=== PATIENT | male | born 1965 | race Caucasian/White ===

== ENCOUNTER 2023-03-27 07:39 | Emergency (ER) | payer OTHER, SELFPAY ==
[2023-03-27 07:40] VITALS: BP 105/37
[2023-03-27 08:12] LABS: % Basophils 1.6 % (0-2); % Eosinophils 8.1 % (0-6); % Immature Granulocytes 0.3 % (0-0.5); % Lymphocytes 26.8 % (20.5-51.1); % Monocytes 11.6 % (1.7-9.3); % Neutrophils 51.6 % (42.2-75.2); Absolute Basophils 0.1 10^3/uL (0-0.2); Absolute Eosinophils 0.6 10^3/uL (0-0.7); Absolute Lymphocytes 2.1 10^3/uL (1.2-3.4); Absolute Monocytes 0.9 10^3/uL (0.1-0.6); Absolute Neutrophils 4.1 10^3/uL (1.4-6.5); Hematocrit 37.9 % (39.0-52.0); Hemoglobin 12.8 g/dL (13.0-18.0); Mean Corp Hgb Conc. 33.8 g/dL (33.0-37.0); Mean Corpuscular Hgb 27.4 pg (27.0-31.0); Mean Platelet Volume 8.9 fL (7.4-10.4); Nucleated Red Blood Cells % 0 % (-); Platelet Count 249 10^3/uL (130-400); Red Blood Cell Count 4.68 10^6/uL (4.70-6.10); White Blood Cell Count 7.9 10^3/uL (4.8-10.8)
[2023-03-27 08:14] LABS: ALT (SGPT) 22 U/L (0-50); AST (SGOT) 25 U/L (17-59); Albumin 3.9 g/dl (3.5-5.0); Alkaline Phosphatase 100 U/L (38-126); Blood Urea Nitrogen 53 mg/dl (9-20); Calcium 9.4 mg/dl (8.4-10.2); Carbon Dioxide 31 mmol/L (22-30); Chloride 94 mmol/L (98-107); Glucose 160 mg/dl (70-99); Potassium 3.7 mmol/L (3.5-5.1); Sodium 132 mmol/L (135-145); Total Bilirubin 0.8 mg/dl (0.2-1.3); Total Protein 6.9 g/dl (6.3-8.2); eGFR 53.63
--- NOTE | 2023-03-27 08:20 | ED.GENMED ---
History of Present Illness
General
Chief Complaint: Chest Pain
Source: patient
Exam Limitations: none
Time Seen by Provider: 03/27/23 08:18
Nursing documentation reviewed up to this point in time: agreed with
Travel History
Have you had any contact with someone who has COVID-19?: No
Do you have any symptoms of coronavirus? Fever > 100 degrees, chills, cough, shortness of breath, sore throat, loss of taste or smell, muscle aches, or headache?: No
History of Present Illness
History of Present Illness:
57-year-old male with history of SARAH, CAD, chronic hypotension, anemia, moderate to severe MR, HTN, HLD, NH, multivessel CAD with history of stenting x 3, history of VT/VF with ICD shock for VT May 08, 2020, acute on chronic, ischemic
cardiomyopathy with LVEF 20 to 25% CHF cardiac stent RCA 2001, CERAMIC PAINTER�D implant 06/2010, PAD with limb threatening ischemia, right leg stent 08/2022, V-fib, GERD, IDDM presents stating he had nonradiating mid chest pressure at 7 AM, 'stronger than I
normally get when I get my episodes.' Took a NTG, no resolution, 15 min later took another NTG and 10 minutes later pain 'faded away.' Has had non since. Denies associated s&s such as SOB, dizziness, sweating, nausea.
Past History
Past History
ED Past Medical History: Arrthythmia, CAD, CHF, COPD, GERD, HTN, Hypercholesterolemia, Valvular disease, Psychiatric, Other and Other (Pleural effusions, noncompliance, left adrenal adenoma, pulmonary hypertension)
ED Past Surgical History: Cardiac (Multiple stents, pacemaker) and Orthopedic
Patient has exhibited threatening behavior?: No
Social History
Tobacco: Smoker
Alcohol: Occasional
Drug: None
Personal: Single
Living: alone
Employment: Not employed
Family History
Family History: Unable to obtain
Review of Systems
Review of Systems
Allergies reviewed?: Yes
All Other Systems: ROS reviewed and negative except as documented in HPI and ROS
Constitutional: Denies fever or fatigue
Respiratory: Denies cough or trouble breathing
Cardiac: Reports chest pain; Denies diaphoresis, palpitations or syncope
ABD/GI: Denies abdominal pain, nausea or vomiting
: Denies dysuria or difficulty voiding
Musculoskeletal: Denies back pain
Skin: Reports other (Both lower legs wrapped in Junior bandages, chronic PAD followed by podiatry and has an appointment 2/ with geodetic advisor)
Neurological: Denies dizzy, headache or weakness
Phy Exam
Physical Exam
Physical Exam:
GENERAL: No acute distress. A&Ox3.
CONSTITUTIONAL: Afebrile.
EYES: Clear,, conjunctivae normal
ENMT: moist mucus membranes, Pharynx nl
RESPIRATORY: Regular respirations, nonlabored, lungs clear.
CARDIOVASCULAR: Irregular rhythm, normal rate, no murmurs, no rubs.
GI: Soft, nontender, normal BS
MUSCULOSKELETAL: Moves with ease. Both lower extremities wrapped in Junior bandages due to PAD, followed by his geodetic advisor
SKIN: Warm, dry, pink
PSYCH: Normal mood and affect. Well kept, interactive and appropriate
NEUROLOGIC: Awake, alert and oriented. No focal neurological deficits
Scores
Heart Score for Chest Pain Patients
STEMI patient?: No
History: Slightly or Non-Suspicious
ECG: Normal
Age: >45 - <65 years
Risk Factors: >/= 3 Risk Factors or History of CAD
Troponin: </= Normal Limit
Heart Score for Chest Pain Patients: 3
Heart Score Risk: 2.5% MACE over next 6 weeks
Course
Orders/Labs/Results
Orders:
Orders
03/27/23 07:47
EKG [Electrocardiogram (*1)] Urgent
Reason for Study: Shortness of Breath
EKG- Treatment ONCE
03/27/23 07:53
CMP [Comprehensive Metabolic Panel] Urgent
Complete Blood Count/With Diff Urgent
Troponin I Urgent
03/27/23 09:06
0.9% Sodium Chloride 500 ml [Nss] 500 ml IV BOLUS
03/27/23 10:32
Troponin I Urgent
Abnormal Lab Results
03/27/23 03/27/23
07:53 10:32
RBC 4.68 L 10^6/uL
(4.70-6.10)
Hgb 12.8 L g/dL
(13.0-18.0)
Hct 37.9 L %
(39.0-52.0)
RDW 18.0 H %
(11.5-14.5)
Absolute Monos (auto) 0.9 H 10^3/uL
(0.1-0.6)
Monocytes % 11.6 H %
(1.7-9.3)
Eosinophils % 8.1 H %
(0-6)
Sodium 132 L mmol/L
(135-145)
Chloride 94 L mmol/L
(98-107)
Carbon Dioxide 31 H mmol/L
(22-30)
BUN 53 H mg/dl
(9-20)
Creatinine 1.5 H mg/dL
(0.7-1.3)
Glucose 160 H mg/dl
(70-99)
Troponin I 0.059 H* ng/ml 0.048 H* ng/ml
03/27/23 07:53
03/27/23 07:53
Vital Signs
Initial and Last Documented VS:
Initial Vital Signs
Temp Pulse Resp BP Pulse Ox
97.9 F 57 18 105/37 100
03/27/23 07:40 03/27/23 07:40 03/27/23 07:40 03/27/23 07:40 03/27/23 07:40
Last Documented Vital Signs
Temp Pulse Resp BP Pulse Ox
97.9 F 72 23 95/57 97
03/27/23 07:40 03/27/23 11:30 03/27/23 11:30 03/27/23 11:00 03/27/23 11:30
MDM/Problems Addressed
Differential Diagnosis Includes:
ACS, unstable angina
MDM/Problems Addressed:
57-year-old male with history of SARAH, CAD, chronic hypotension, anemia, moderate to severe MR, HTN, HLD, NH, multivessel CAD with history of stenting x 3, history of VT/VF with ICD shock for VT May 08, 2020, acute on chronic, ischemic
cardiomyopathy with LVEF 20 to 25% CHF cardiac stent RCA 2001, CERAMIC PAINTER�D implant 06/2010, PAD with limb threatening ischemia, right leg stent 08/2022, V-fib, GERD, IDDM presents stating he had nonradiating mid chest pressure at 7 AM, 'stronger than I
normally get when I get my episodes.' Took a NTG, no resolution, 15 min later took another NTG and 10 minutes later pain 'faded away.' Has had non since. Denies associated s&s such as SOB, dizziness, sweating, nausea.
EKG: Atrial sensed ventricular paced rhythm with occasional PVCs.
03/27/2023 1213 PM
CBC with no clinically significant abnormality
CMP: At his baseline CKD
Troponin #1: 0.059
03/27/2023 1213 PM
Patient wants to go home.
Troponin #2 trending down 0.048 Troponin's are at his baseline
Dr. Rojas Cardiology consulted, case discussed, he agrees since Trops are going down, not likely cardiac. EKD is paced, OK for discharge.
Chronic conditions affecting care: DM, HTN, CAD, Cardiomyopathy, PVD and Kidney disease
*Pulse Oximetry
Patient hypoxic: no
*EKG
EKG Intrepretation Date: 03/27/23
Interpretation: abnormal
Comparison EKG: no changes
Rate: normal
Rhythm: other (Atrial sensed ventricular paced rhythm)
[place]: normal axis
QRS Pattern: wide non-specific
Ischemia: no ischemia
*Critical Care Note
Total Time (30-74mins, 75-104mins- exclusive of procedures): Not Applicable
ED Attending Note
-
Portions of this chart may have been created with voice recognition software.� Occasional wrong word or��sound alike� substitutions may have occurred due to the inherent limitations of voice recognition software.
Discharge Plan
Departure
Patient Disposition: Home (Routine Discharge)
Date of Disposition: 03/27/23
Time of Disposition: 12:39
Patient with high blood pressure during this ER visit?: No
Condition: Good
Discharge Problem:
Atypical chest pain
Instructions: Chest Pain (DC)
Prescriptions:
No Action
aspirin 325 MG tablet
325 mg PO NOON
amiodarone 200 mg Tablet
200 mg PO NOON
clopidogrel 75 MG tablet
75 mg PO NOON
spironolactone 25 MG tablet
12.5 mg PO NOON
metformin 1,000 MG tablet
1,000 mg PO BID
furosemide 80 MG tablet
80 mg PO Q6H
Entresto 24-26 mg Tablet
0.5 tab PO BID
carvedilol 25 mg Tablet
25 mg PO BID
tramadol 50 mg Tablet
50 mg PO Q6H
Patient Comments:
02/08/2023, patient filled this medication on 01/28/2023 for 80 tablets according to PDMP.
atorvastatin [Lipitor] 80 mg Tablet
80 mg PO NOON
Jardiance 10 mg Tablet
10 mg PO NOON
metolazone 2.5 mg Tablet
2.5 mg PO MOWEFR
nitroglycerin 0.4 mg Tablet, Sublingual
0.4 mg SUBLINGUAL Q8H
Corlanor 5 mg Tablet
5 mg PO BID
insulin lispro 100 unit/mL insulin pen
12 unit SC QID
Referrals:
Luca Whelan MD [Family Provider] -
Ezequiel Nicole MD [Active] - Keep scheduled appt
Activity Restrictions/Additional Instructions:
As we discussed, I discussed your lab work and EKG and history with cardiology Dr. Rojas who agrees your chest pain was most likely not cardiac and it is okay for you to go home. Keep your appointment with Dr. Nicole in March. Return here
immediately if your chest pain recurs or you feel sicker in any way.
Interventions
Interventions:
*Risk Screen - Suicide Last Done: 03/27/23 07:40
*General Assessment Last Done: 03/27/23 09:11
*Neglect/Abuse Screening Last Done: 03/27/23 07:40
ED- Fall Risk Assessment Last Done: 03/27/23 09:11
*ED COVID-19 Vaccine History Last Done: 03/27/23 07:40
*Nursing Disposition Last Done: 03/27/23 13:14
ED- Cardiac Assessment Last Done: 03/27/23 09:11
Discharge Date and Time
Discharge Date/Time: 03/27/23 13:14
[2023-03-27 08:28] LABS: Troponin I 0.059 ng/ml
[2023-03-27 08:52] VITALS: BP 107/50
[2023-03-27 09:04] VITALS: BP 95/63
[2023-03-27 10:00] VITALS: BP 96/59
[2023-03-27] MEDS: NSS 500 IV (10:32)
[2023-03-27 11:00] VITALS: BP 95/57
[2023-03-27 11:13] LABS: Troponin I 0.048 ng/ml
== END 2023-03-27 13:14 | disposition home or self-care (01) ==
LOC: EMR 07:39
PROVIDERS: Registered Nurse; EMERGENCY PHYSICIAN Emergency Medicine; FAMILY PHYSICIAN Family Medicine
DX: R07.89 Other chest pain (principal); I25.110 Atherosclerotic heart disease of native coronary artery with unstable angina pectoris; E11.22 Type 2 diabetes mellitus with diabetic chronic kidney disease; E11.51 Type 2 diabetes mellitus with diabetic peripheral angiopathy without gangrene; I13.0 Hypertensive heart and chronic kidney disease with heart failure and stage 1 through stage 4 chronic kidney disease, or unspecified chronic kidney disease; I50.9 Heart failure, unspecified; N18.9 Chronic kidney disease, unspecified; K21.9 Gastro-esophageal reflux disease without esophagitis; J44.9 Chronic obstructive pulmonary disease, unspecified; E78.00 Pure hypercholesterolemia, unspecified; I25.2 Old myocardial infarction; I25.5 Ischemic cardiomyopathy; F17.200 Nicotine dependence, unspecified, uncomplicated; Z86.018 Personal history of other benign neoplasm; Z86.79 Personal history of other diseases of the circulatory system; Z95.0 Presence of cardiac pacemaker; Z95.5 Presence of coronary angioplasty implant and graft
CPT/HCPCS: 99283; 96360; 80053; 84484; 85025; 93005

== ENCOUNTER → 2024-07-03 06:19 | Outpatient (REF) | payer OTHER, SELFPAY | LOC: RAD 06:19 | PROVIDERS: ATTENDING PHYSICIAN Family Medicine | DX: E11.65 Type 2 diabetes mellitus with hyperglycemia (principal); I25.5 Ischemic cardiomyopathy | CPT/HCPCS: 93880 ==

== ENCOUNTER 2024-12-29 03:18 | Emergency (ER) | payer OTHER, SELFPAY ==
[2024-12-29 03:25] VITALS: BP 96/71
[2024-12-29 03:57] LABS: Hematocrit 48.9 % (39.0-52.0); Hemoglobin 15.8 g/dL (13.0-18.0); Mean Corp Hgb Conc. 32.3 g/dL (33.0-37.0); Mean Corpuscular Volume 92.4 fL (80.0-94.0); Nucleated Red Blood Cells % 0 % (-); Platelet Count 279 10^3/uL (130-400); Red Cell Dist. Width 15.4 % (11.5-14.5)
[2024-12-29 04:21] LABS: ALT (SGPT) 13 U/L (0-50); AST (SGOT) 16 U/L (17-59); Albumin 4.2 g/dl (3.5-5.0); Alkaline Phosphatase 86 U/L (38-126); Blood Urea Nitrogen 27 mg/dl (9-20); Calcium 9.5 mg/dl (8.4-10.2); Carbon Dioxide 30 mmol/L (22-30); Chloride 96 mmol/L (98-107); Glucose 107 mg/dl (70-99); Potassium 3.8 mmol/L (3.5-5.1); Sodium 134 mmol/L (135-145); Total Protein 7.9 g/dl (6.3-8.2); eGFR 49.02
[2024-12-29 04:37] LABS: Troponin I 0.080 ng/ml
[2024-12-29 04:39] VITALS: BP 89/57
[2024-12-29 04:40] VITALS: BMI 29.0
[2024-12-29 04:41] VITALS: BP 83/57
[2024-12-29 05:00] VITALS: BP 92/54
[2024-12-29 06:00] VITALS: BP 97/56
--- NOTE | 2024-12-29 06:20 | ED.GENMED ---
Addendum entered and electronically signed by Mildred Diamond DO 12/29/24 08:37:
Patient seen and evaluated overnight by overnight physician. 59-year-old male with significant cardiac history including CAD with stenting, diabetes, hypertension, hyperlipidemia, chronic wound presenting for a chest pressure with shoulder
discomfort. Patient seen in the hospital, hemodynamically stable. EKG paced rhythm. However troponin elevated. Patient had been admitted to the hospital with cardiology consulted. Upon cardiology's assessment, agree with cardiac observation,
troponin trending, cardiac monitoring. However patient adamantly refusing to stay in the hospital. Did see patient and discussed with patient reasons for recommendation of hospital admission. Explained that if patient is leaving the hospital,
will be leaving against medical vice. Explained particularly that the concern is for acute cardiac event which could lead to cardiac arrest and/or cardiac if left untreated. Patient verbalized understanding.
-Mildred Diamond DO
Original Note:
History of Present Illness
General
Chief Complaint: Chest Pain
Source: patient
Exam Limitations: none
Time Seen by Provider: 12/29/24 05:38
Nursing documentation reviewed up to this point in time: agreed with
History of Present Illness
History of Present Illness:
59-year-old male with past medical history of hypertension, hyperlipidemia, diabetes, CAD status post stents, PVD, chronic wounds on his right foot who presents to the emergency department for evaluation of chest pain with diaphoresis and dizziness.
Patient reports that he was resting in his chair at around midnight when he began to feel aching pain across his chest into his shoulders. He says he had associated diaphoresis. He got up to go to the bathroom and said he was feeling dizzy.
Decided to come to the ER for assessment. He says he took a nitro and by the time he got to the ER his symptoms seem to have resolved. He is now asymptomatic. Denies any associated shortness of breath. Denies any nausea or vomiting. Denies any
other acute complaints. He has a history of CAD status post stents and sees Dr. ANA Nicole for cardiology
Past History
Past History
ED Past Medical History: Arrthythmia, CAD, CHF, COPD, GERD, HTN, Hypercholesterolemia, Valvular disease, Psychiatric, Other and Other (Pleural effusions, noncompliance, left adrenal adenoma, pulmonary hypertension)
ED Past Surgical History: Cardiac (Multiple stents, pacemaker) and Orthopedic
Patient has exhibited threatening behavior?: No
Social History
Tobacco: Smoker
Alcohol: Occasional
Drug: None
Personal: Single
Living: alone
Employment: Not employed
Family History
Family History: Unable to obtain
Review of Systems
Review of Systems
All Other Systems: ROS reviewed and negative except as documented in HPI and ROS
Constitutional: Denies fever
Respiratory: Denies trouble breathing
Cardiac: Reports chest pain and diaphoresis; Denies palpitations
ABD/GI: Denies abdominal pain, nausea or vomiting
: Denies flank pain
Musculoskeletal: Denies neck pain or back pain
Neurological: Reports dizzy; Denies headache
Phy Exam
Physical Exam
Physical Exam:
General: Awake, alert, oriented x3; no acute distress
Head: Normocephalic, atraumatic
Eyes: Conjunctiva normal, sclera anicteric
Throat: Airway intact, handling secretions
Neck: Trachea midline, no JVD
Lungs: Clear to auscultation bilaterally, no wheezing, rales, rhonchi
Heart: Regular rate and rhythm, no murmurs, gallops, or rubs appreciated
Abd: Soft, non distended, nontender
Neuro: Grossly intact
Extremities: Warm and well-perfused
Scores
Heart Failure Risk
Heart Failure Risk Score: Not Applicable
Heart Score for Chest Pain Patients
STEMI patient?: No
History: Moderately Suspicious
ECG: Normal (Paced)
Age: >45 - <65 years
Risk Factors: >/= 3 Risk Factors or History of CAD
Troponin: >/= 3 x Normal Limit
Heart Score for Chest Pain Patients: 6
Heart Score Risk: 20.3% MACE over next 6 weeks
Withdrawal Assessment of Alcohol
Withdrawal Assessment Completed?: Not applicable
Course
Orders/Labs/Results
Orders:
Orders
12/29/24 03:28
Electrocardiogram (*1) Urgent
Reason for Study: Other
Other Reason for Exam: Respiratory Distress
Cardiac Monitoring- Treatment ONCE
EKG- Treatment ONCE
IV Insert/Care/Rem.- Treatment PRN
CR Chest - 2 Views Urgent
Comment:
Reason For Exam: respiratory distress
O2 Therapy [RESP] Urgent
Titrate/Wean O2 to maintain O2 sat greater than (%): 93
Special Instructions: TO MAINTAIN CONTINUOUS O2 SATS >/= 93%
Pulse Ox/cont/shift [RESP] Urgent
Quantity: 1
Special Instructions: continuous pulse ox
12/29/24 03:39
Complete Blood Count/With Diff Urgent
Comprehensive Metabolic Panel Urgent
NT-proBNP Urgent
Troponin I Urgent
12/29/24 05:43
Interrogate Pacemaker- Treatment ONCE
12/29/24 06:18
CARDIOLOGY CONSULT Urgent
Consulting Provider: Lloyd Fountain
Was physician already notified: Yes
Aspirin Chewable [Low Strength Aspirin] 324 mg PO NOW STA
12/29/24 06:30
Troponin I Urgent
Abnormal Lab Results
12/29/24
03:39
MCHC 32.3 L g/dL
(33.0-37.0)
RDW 15.4 H %
(11.5-14.5)
Absolute Monos (auto) 0.9 H 10^3/uL
(0.1-0.6)
Lymphocytes % 19.7 L %
(20.5-51.1)
Monocytes % 10.5 H %
(1.7-9.3)
Sodium 134 L mmol/L
(135-145)
Chloride 96 L mmol/L
(98-107)
BUN 27 H mg/dl
(9-20)
Creatinine 1.6 H mg/dL
(0.7-1.3)
Glucose 107 H mg/dl
(70-99)
AST 16 L U/L
(17-59)
Troponin I 0.080 H* ng/ml
12/29/24 03:39
12/29/24 03:39
Vital Signs
Initial and Last Documented VS:
Initial Vital Signs
Temp Pulse Resp BP Pulse Ox
36.4 C 63 26 96/71 99
12/29/24 03:25 12/29/24 03:25 12/29/24 03:25 12/29/24 03:25 12/29/24 03:25
Last Documented Vital Signs
Temp Pulse Resp BP Pulse Ox
36.4 C 60 17 97/56 97
12/29/24 03:25 12/29/24 05:30 12/29/24 05:00 12/29/24 06:00 12/29/24 06:00
MDM/Problems Addressed
Differential Diagnosis Includes:
Angina/ACS, dysrhythmia, GERD
MDM/Problems Addressed:
59-year-old male with extensive medical history presents after an episode of chest pain with diaphoresis and dizziness that resolved after nitroglycerin. Vitals and exam as above. EKG shows a paced rhythm. Labs sent off including a CBC and a CMP
which showed no clinical significant abnormalities�CKD is stable. His troponin is elevated at 0.08. Case discussed with cardiology for consultation. Will treat with aspirin here. Trend troponin. Discussed case with hospitalist for admission.
Chronic conditions affecting care: DM, HTN and CAD
*Radiology
Radiology exam reviewed: preliminary read by ED provider
*Pulse Oximetry
SaO2: 97
Oxygen Mode of Delivery: Room air
Patient hypoxic: no (97%)
*EKG
Interpreted by ED Provider?: Yes
Heart Rate: 58
Rate: normal
Rhythm: ventricular paced
*Critical Care Note
Total Time (30-74mins, 75-104mins- exclusive of procedures): Not Applicable
Data Reviewed
Source: patient, records and family
Patient Management
Discussion with other providers: Hospitalist (Discussed with hospitalist) and Winding Department Supervisor (Discussed with architectural project captain)
Escalation/DeEscalation of care consider admission/obs:
Admission indicated
ED Attending Note
-
Portions of this chart may have been created with voice recognition software.� Occasional wrong word or��sound alike� substitutions may have occurred due to the inherent limitations of voice recognition software.
Discharge Plan
Departure
Patient Disposition: Admit
Date of Disposition: 12/29/24
Time of Disposition: 06:19
Admit to doctor: Irineo
Presentation/result/management discussed w/ accepting MD/DO: Hospitalist
Discharge Problem:
Chest pain
Prescriptions:
No Action
aspirin 325 MG tablet
325 mg PO NOON
amiodarone 200 mg Tablet
200 mg PO NOON
clopidogrel 75 MG tablet
75 mg PO NOON
spironolactone 25 MG tablet
12.5 mg PO NOON
metformin 1,000 MG tablet
1,000 mg PO BID
furosemide 80 MG tablet
80 mg PO Q6H
Entresto 24-26 mg Tablet
0.5 tab PO BID
carvedilol 25 mg Tablet
25 mg PO BID
tramadol 50 mg Tablet
50 mg PO Q6H
Patient Comments:
02/08/2023, patient filled this medication on 01/28/2023 for 80 tablets according to PDMP.
atorvastatin [Lipitor] 80 mg Tablet
80 mg PO NOON
Jardiance 10 mg Tablet
10 mg PO NOON
metolazone 2.5 mg Tablet
2.5 mg PO MOWEFR
nitroglycerin 0.4 mg Tablet, Sublingual
0.4 mg SUBLINGUAL Q8H
Corlanor 5 mg Tablet
5 mg PO BID
insulin lispro 100 unit/mL insulin pen
12 unit SC QID
Interventions
Interventions:
*Risk Screen - Suicide Last Done: 12/29/24 03:25
*General Assessment Last Done: 12/29/24 03:25
*Neglect/Abuse Screening Last Done: 12/29/24 03:25
*ED- Fall Risk Assessment Last Done: 12/29/24 04:40
*ED COVID-19 Vaccine History Last Done: 12/29/24 04:40
*ED Influenza Vaccine History Last Done: 12/29/24 04:40
ED- Cardiac Assessment Last Done: 12/29/24 04:40
Discharge Date and Time
Print Language: GUYANESE
[2024-12-29] MEDS: LOW STRENGTH ASPIRIN 324 MG PO (06:28)
[2024-12-29 07:00] VITALS: BP 100/54
[2024-12-29 07:24] LABS: Troponin I 0.058 ng/ml
--- NOTE | 2024-12-29 08:33 | CON.CAR ---
Consultation
Consultation Request
Date/Time Consultation Requested: 12/29/24 6:15AM
Date/Time Consultation Performed: 12/29/24 7:50AM
Requesting Provider: Dr Solorzano
Performing Provider: Dr Fountain
Reason for Consultation: dizziness/sweats
Medical History
-
Chief Complaint: dizziness
History of Present Illness:
59-year-old male with complex past medical history including ischemic cardiomyopathy, ICD, multivessel coronary artery disease status post PCI, peripheral vascular disease with residual left lower extremity wound, diabetes, hypertension,
hyperlipidemia, and moderate to severe mitral regurgitation presents with dizziness, lightheadedness, and back/neck pains. He states he was in his usual state of health when last night at midnight he started feeling poorly. He felt weak and dizzy.
He had some sweats as well. He denies any chest pains. He felt some neck and back pains intermittently. This occurred when he was going to the bathroom. He states the day before he was feeling well with no symptoms of chest pain or shortness of
breath. He states he has been compliant with the medication but sometimes he skips his Lasix. He has no fevers or chills. He has no coughing or wheezing. He feels no palpitations. His energy has been poor recently. He is minimally active. He
is planning on moving to [place]. He denies any orthopnea but does get intermittent leg edema. He takes nitroglycerin about 3 times a week for intermittent symptoms including chest pains and difficulty sleeping. He currently is resting
comfortable in bed and feels well.
PMH:
Left external iliac stent 10/29/2022 (7 x 37 mm express)
Lower extremity leg wounds
HTN
Lipids
chronic heart failure with reduced ejection fraction
VT/VF with� ICD shock for VT 05/08/20, ATP therapy x5 to abort shock 05/19/20
ICM EF 20-25% by echo 08/24/2022
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
Multivessel CAD
s/p 3.5 mm Xience BARB proximal LAD 01/16/13
remote RCA and LAD PCI
Moderate-severe MR by echo 08/24/2022
DM 2
Non-compliance
Ongoing tobacco use
Depression
Past Medical History
Past Surgical History: Cardiac (hx medtronic DRT-D)
Social History
Tobacco: Smoker
Alcohol: None
Drug: None
Employment: Not Employed
Family History
Family History: CAD
Allergies / Home Medications
Allergy/AdvReac Type Severity Reaction Status Date / Time
Cephalosporins Allergy Unknown Verified 12/29/24 03:25
Penicillins Allergy Unknown Verified 12/29/24 03:25
cats Allergy watery, Uncoded 12/29/24 03:25
itchy eyes
�Medication �Instructions �Recorded �Confirmed �Type
amiodarone 200 mg tablet 200 mg PO NOON Arrhythmia 01/16/21 03/27/23 History
aspirin 325 mg tablet 325 mg PO NOON Blood Clot 01/16/21 03/27/23 History
Prevention/Tx
clopidogrel 75 mg tablet 75 mg PO NOON Blood Clot 01/16/21 03/27/23 History
Prevention/Tx
metformin 1,000 mg tablet 1,000 mg PO BID Diabetes 01/16/21 03/27/23 History
spironolactone 25 mg tablet 12.5 mg PO NOON Fluid 01/16/21 03/27/23 History
Retention/Swelling
atorvastatin 80 mg tablet (Lipitor) 80 mg PO NOON High Cholesterol 10/26/22 03/27/23 History
empagliflozin 10 mg tablet 10 mg PO NOON Diabetes 10/26/22 03/27/23 History
(Jardiance)
furosemide 80 mg tablet 80 mg PO Q6H Fluid 11/02/22 03/27/23 History
Retention/Swelling
sacubitril 24 mg-valsartan 26 mg 0.5 tab PO BID 11/09/22 03/27/23 History
tablet (Entresto)
carvedilol 25 mg tablet 25 mg PO BID 11/19/22 03/27/23 History
tramadol 50 mg tablet 50 mg PO Q6H pain 11/19/22 03/27/23 History
insulin lispro 100 unit/mL 12 unit SC QID Diabetes 02/08/23 03/27/23 History
subcutaneous pen
ivabradine 5 mg tablet (Corlanor) 5 mg PO BID 02/08/23 03/27/23 History
metolazone 2.5 mg tablet 2.5 mg PO MOWEFR 02/08/23 03/27/23 History
nitroglycerin 0.4 mg sublingual 0.4 mg sublingual Q8H 02/08/23 03/27/23 History
tablet
Review of Systems
-
History Source: Patient
Constitutional: Fatigue
EENT: No Symptoms
Respiratory: Trouble Breathing
Cardiac: Diaphoresis
Abdomen/GI: No Symptoms
: No Symptoms
Musculoskeletal: Muscle Pain
Skin: Rash
Neurological: No Symptoms
Endocrine: No Symptoms
Hematologic/Lymphatic: No Symptoms
Physical Exam
Vital Signs
Temp Pulse Resp BP Pulse Ox
97.6 F 64 20 100/54 98
12/29/24 03:25 12/29/24 07:00 12/29/24 07:00 12/29/24 07:00 12/29/24 07:00
Lab Results
12/29/24 03:39
12/29/24 03:39
Troponin I 0.058 ng/ml H* D 12/29/24 06:26
Bzf-I-Npogjfmgydi Pept 6390 pg/ml 12/29/24 03:39
Physical Exam
General: No Apparent Distress and Comfortable
HEENT: Normocephalic and Anicteric
Respiratory: Clear and Non Labored Respirations
Cardiac: S1/S2, Regular Rhythm and Murmur (2/6 AHSM)
GI: Soft, Non Tender and Non Distended
Musculoskeletal: Edema
Skin: Rash (Left leg dressings intact, chronic venous stasis changes)
Neuro: AO x 3
Psych: Calm
Impression / Plan
-
PCP: Dr. Luca Whelan
Cardiology: Dr. ANA Nicole
Assess:
dizziness/sweats
abnormal troponin
chronic heart failure with reduced ejection fraction
VT/VF with� ICD shock for VT 05/08/20, ATP therapy x5 to abort shock 05/19/20
ICM EF 20-25% by echo 08/24/2022 gen change 11/20
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
Multivessel CAD
s/p 3.5 mm Xience BARB proximal LAD 01/16/13
remote RCA and LAD PCIModerate-severe MR by echo 08/24/2022
DM 2
Non-compliance
Ongoing tobacco use
Depression
Echo 08/24/2022: EF 25%, global hypokinesis with basal septal, apical/inferoapical akinesis.� Mid inferior and mid septal regions contract best with severe hypokinesis of the remaining segments.� Stage III DD, dilated RA with normal RV function,
moderate to severe MR with mild left atrial dilatation, PAP 42 mmHg
Echo 12/17/19:�EF 20%, inferolateral, inferior apical, inferior wall and apex along with the anterolateral wall is hypokinetic to akinetic, mod MR
Lexiscan nuclear stress test 12/17/2019:�LV dilation and wall thinning suggestive of multivessel CAD.� Large severely noted fixed inferior, inferolateral and apical defect consistent with scar.� Mild distal anterior defect which is consistent with
infarction with mild residual ischemia.
ECHO 10/26/2022: EF 20%, LV severely dilated, severe global hypokinesis with anterolateral, basal and mid inferior, lateral, and apical akinesis, mild concentric LVH, moderate to severe MR, mildly dilated left atrium, dense calcification on the left
aortic coronary cusp
Plan:
59-year-old man with ischemic cardiomyopathy and advanced end-stage chronic heart failure with reduced ejection fraction presents with sweats, lightheadedness, and some dizziness. Cardiac troponin is mildly abnormal at 0.08. Repeat troponin
improved at 0.058. His creatinine is mildly abnormal at 1.6. proBNP is also elevated 6390.
I am recommending admission to the hospital for observation. His blood pressure is on the low side and his troponins are in the indeterminate zone.
He has known three-vessel coronary artery disease and also has some mild acute/chronic heart failure with reduced ejection fraction
Would recommend starting with a repeat echocardiogram to reevaluate his LVEF and moderate to severe mitral regurgitation.
It is possible his symptoms are due to hypotension. Will continue carvedilol, Entresto, and Lasix. Would start Lasix IV 80 mg IV twice daily and follow his blood pressure closely. Continue Jardiance.
I suspect he does have significant progressive coronary artery disease but has been intermittently compliant with follow-up and medications. Would hold off on cardiac catheterization for now and start with an echocardiogram.
We will also check his device while hospitalized to look for any ventricular tachycardia.
Continue wound care for his peripheral vascular disease.
Data Reviewed
-
EKG: Report Reviewed by me
Radiology: Report Reviewed by me
Medical Tests (Nuc Med, Echo etc): Report Reviewed by me
Labs: Labs Reviewed by me
Old Records: Reviewed
--- NOTE | 2024-12-29 09:18 | EDRN ---
Patient wheeled to waiting room in and requested location of vending machine to get some 'soda and chips' offered the patient a turkey box lunch as healthier alternative and patient declined.
== END 2024-12-29 08:52 | disposition left against medical advice (07) ==
LOC: EMR 03:18
PROVIDERS: Emergency Medicine; CONSULT PHYSICIAN Internal Medicine Cardiovascular Disease; EMERGENCY PHYSICIAN Emergency Medicine; FAMILY PHYSICIAN Family Medicine
DX: R07.9 Chest pain, unspecified (principal); E11.51 Type 2 diabetes mellitus with diabetic peripheral angiopathy without gangrene; E78.00 Pure hypercholesterolemia, unspecified; I11.0 Hypertensive heart disease with heart failure; I50.22 Chronic systolic (congestive) heart failure; I25.10 Atherosclerotic heart disease of native coronary artery without angina pectoris; J44.9 Chronic obstructive pulmonary disease, unspecified; F17.200 Nicotine dependence, unspecified, uncomplicated; Z95.0 Presence of cardiac pacemaker; Z95.5 Presence of coronary angioplasty implant and graft; I25.5 Ischemic cardiomyopathy; I27.20 Pulmonary hypertension, unspecified; I34.0 Nonrheumatic mitral (valve) insufficiency
CPT/HCPCS: 99285; 71046; 80053; 83880; 84484; 85025; 93005